=== PATIENT | male | born 1980 | race Hispanic/Latino ===

== ENCOUNTER → 2023-05-31 07:56 | Outpatient (CLI) | payer OTHER, SELFPAY ==
--- NOTE | 2023-05-31 08:04 | DI.RAD.S_ITS ---
PROCEDURE: XR LUMBAR SPINE MIN 4V INDICATIONS: BACK PAIN TECHNIQUE: 5 views of the lumbar spine were acquired, including bilateral oblique views. COMPARISON: None. FINDINGS: Bones: 5 nonrib-bearing vertebrae are present. There is normal bony alignment. No vertebral body compression fractures. No suspicious bony lesions. Soft tissues: Overlying bowel gas pattern is normal. No suspicious soft tissue calcifications. Oblique images: No pars defects. IMPRESSION: No compression fracture or spondylolisthesis. No pars defects. Dictated by: Jori Crane M.D. on 05/31/2023 at 13:37 Approved by: Jori Crnae M.D. on 05/31/2023 at 13:38
== END ==
PROVIDERS: PCP Chiropractor; Referring Provider Anesthesiology; Visit Provider Anesthesiology
DX: M47.816 Spondylosis without myelopathy or radiculopathy, lumbar region (principal); M53.3 Sacrococcygeal disorders, not elsewhere classified; M54.9 Dorsalgia, unspecified
CPT/HCPCS: 72110; 99214